=== PATIENT | male | born 2000 | race Caucasian/White ===

== ENCOUNTER 2019-03-07 18:15 | Inpatient (IN) | payer MEDICAID, OTHER ==
[~2019-03-07] VITALS: Ht 177.8 cm; Wt 154.7 kg
[2019-03-07 18:29] VITALS: BP 149/105
--- NOTE | 2019-03-07 18:40 | NUR ---
PT C/O N/V/D SINCE THIS MORNING. PT HAS WATERY DIARRHEA FOR 4 TIMES AND VOMITING 4 TIMES SINCE THIS MORNING. PT ALSO STATES HAVING DIFFUSED ABDOMINAL PAIN, SHARP, 7/10 AT THIS TIME. SKIN IS PINK/WARM/DRY; AAOX4 WITH EVEN AND STEADY GAIT; PT DENIES ANY FEVER, CP, SOB, OR COUGH AT THIS TIME; PATIENT STATES PAIN OF 7/10 AT THIS TIME; VSS; PATIENT POSITIONED FOR COMFORT; HOB ELEVATED; BEDRAILS UP X1; BED DOWN. ER MD MADE AWARE OF PT STATUS.
[2019-03-07] MEDS ORDERED: NACL 0.9% 1,000 ML IV ONE ×3 (19:50→22:00)
[2019-03-07] MEDS ORDERED: KETOROLAC 30 MG/ML VIAL IVP ONE ×2 (19:50→21:40)
[2019-03-07] MEDS ORDERED: ONDANSETRON 4 MG/2 ML VIAL IVP ONE (19:50)
[2019-03-07 20:25] LABS: HEMATOCRIT 47.5 % (36-52); HEMOGLOBIN 16.4 g/dL (12.0-18.0); MEAN CORPUSCULAR HEMOGLOBIN 30 pg (27-31); MEAN CORPUSCULAR HGB CONC 35 g/dL (33-37); PLATELET COUNT (AUTO) 287 K/uL (140-450); RED BLOOD CELL COUNT(AUTO) 5.52 MIL/uL (4.20-6.10); RED CELL DISTRIBUTION WIDTH 13.2 % (11.6-13.7); WHITE BLOOD COUNT (AUTO) 18.9 K/uL (4.5-11.0)
[2019-03-07 20:39] LABS: ANION GAP 14.9 (8-16); CREATININE 0.9 mg/dL (0.7-1.3); POTASSIUM 3.9 mmol/L (3.5-5.1)
[2019-03-07 20:46] LABS: ALBUMIN 4.2 g/dL (3.4-5.0); TOTAL BILIRUBIN 1.4 mg/dL (0.0-1.0)
[2019-03-07 20:48] LABS: LYMPHOCYTES % (MANUAL) 8 % (20-46); MONOCYTES % (MANUAL) 4 % (5-12)
[2019-03-07 20:54] LABS: APPEARANCE,URINE CLEAR (CLEAR); BILIRUBIN,URINE 1+ (NEGATIVE); BLOOD, URINE NEGATIVE (NEGATIVE); COLOR,URINE YELLOW (YELLOW); LEUKOCYTE ESTERASE ,URINE NEGATIVE (NEGATIVE); NITRITE, URINE NEGATIVE (NEGATIVE); UGLUCOSE NEGATIVE (NEGATIVE)
--- NOTE | 2019-03-07 21:30 | NUR ---
RECEIVED REPORT FROM AM NURSE. ASSUMED CARE OF PT AT THIS TIME. PT LAYING IN BED, FAMILY AT BEDSIDE. RR EVEN AND UNLABORED. ALL NEEDS MET.
[2019-03-07] MEDS ORDERED: LEVOFLOXACIN 750 MG/D5W PREMIX 150 ML IV ONE (21:40)
[2019-03-07] MEDS ORDERED: metroNIDAZOLE 500 MG/NS PREMIX 100 ML IV ONE (21:40)
[2019-03-07] MEDS ORDERED: ONDANSETRON 4 MG/2 ML VIAL IVP PRN (21:55)
[2019-03-07] MEDS ORDERED: ACETAMINOPHEN 325 MG TAB PO PRN (21:55)
[2019-03-07] MEDS ORDERED: HYDROcodone/APAP 7.5/325 MG 1 TAB PO PRN (21:55)
[2019-03-07] MEDS ORDERED: DEXT 5% / NACL 0.9% 500 ML IV SCH (22:05)
--- NOTE | 2019-03-07 22:22 | NUR ---
PT LAYING IN BED, FAMILY AT BEDSIDE. VSS. RR EVEN AND UNLABORED. REPORTS 2/10 PAIN AT THIS TIME. ALL NEEDS MET
--- NOTE | 2019-03-07 22:27 | NUR ---
Patient will be admitted to care of DR MANCILLA. Admited to [facility]. Will go to room 119A. Belongings list completed. Report to VANE MORENO.
[2019-03-07 22:35] VITALS: BP 127/76
--- NOTE | 2019-03-07 22:35 | NUR ---
REPORT RECEIVED FROM ED NURSE AT BEDSIDE. PT IN STABLE CONDITION. AAOX4. INTRODUCED SELF TO PT. BOARD UPDATED. NO COMPLAINTS OF PAIN. NO SOB. PT HAS A LOW GRADE FEVER AT 99.9. WILL MEDICATE. PT IS AMBULATORY. IV SITE R HAND 22G RUNNING D5NS@126ML/HR PATENT AND INTACT. SKIN WARM, DRY, AND INTACT WITH NO OPEN WOUNDS. BED LOCKED IN LOW POSITION. CALL ESCAMILLA WITHIN REACH. SAFETY PRECAUTION IN PLACE. ALL NEEDS MET AT THIS TIME.
[2019-03-07 22:45] LABS: PROTHROMBIN TIME 10.1 secs (10.8-13.4)
[2019-03-07 22:48] LABS: BARBITURATE, URINE NEG. ng/ml (NEG <=200); BENZODIAZEPINE, URINE NEG. ng/mL (NEG <=200); CANNABINOID, URINE NEG. ng/mL (NEG <=50); COCAINE, URINE NEG. ng/mL (NEG <=300); OPIATE, URINE NEG. ng/mL (NEG <=2000); PHENCYCLIDINE SCREEN,URINE NEG. ng/mL (NEG <=25)
[2019-03-07 22:52] LABS: FREE T4 (FREE THYROXINE) 1.14 ng/dL (0.76-1.46); MAGNESIUM 1.7 mg/dL (1.8-2.4); PHOSPHORUS 3.5 mg/dL (2.5-4.9); THYROID STIMULATING HORMONE 1.41 uIU/mL (0.34-3.74)
[2019-03-07] MEDS: DEXT 5% / NACL 0.9% 1,000 ML IV SCH (23:00)
--- NOTE | 2019-03-07 23:00 | NUR ---
OCCULT BLOOD AND STOOL SAMPLE RECEIVED. WILL SEND OUT TO LAB.
[2019-03-07] MEDS ORDERED: KETOROLAC 30 MG/ML VIAL IM PRN (23:15)
[2019-03-07] MEDS ORDERED: MAG SULF 2000 MG/WATER PREMIX 50 ML IV ONE (23:20)
--- NOTE | 2019-03-07 23:31 | NUR ---
TYL GIVEN FOR LOW GRADE FEVER OF 99.9 AND MILD PAIN AT IV SITE. PT TOLERATED WELL.
[2019-03-08] VITALS: BP 113/64
--- NOTE | 2019-03-08 00:18 | NUR ---
CY RENDON AND RUNNING. PT TOLERATING WELL.
--- NOTE | 2019-03-08 01:27 | NUR ---
ZOFRAN GIVEN FOR N/V. PT TOLERATED WELL.
--- NOTE | 2019-03-08 01:56 | NUR ---
MAGNESIUM HUNG AND RUNNING. PT TOLERATED WELL.
[2019-03-08] MEDS: metroNIDAZOLE 500 MG/NS PREMIX 100 ML IV SCH ×3 (04:08→21:26)
--- NOTE | 2019-03-08 04:08 | NUR ---
ART HUNG AND RUNNING. PT TOLERATING WELL.
--- NOTE | 2019-03-08 05:30 | NUR ---
PT AWAKE AND ALERT TRYING TO SLEEP. NO S/S OF DISTRESS NOTED. WILL CONTINUE TO MONITOR.
[2019-03-08 06:44] LABS: ANION GAP 14.2 (8-16); CARBON DIOXIDE 23.4 mmol/L (21-32); CREATININE 0.9 mg/dL (0.7-1.3); POTASSIUM 3.6 mmol/L (3.5-5.1)
[2019-03-08 06:56] LABS: MAGNESIUM 1.8 mg/dL (1.8-2.4); PHOSPHORUS 2.8 mg/dL (2.5-4.9)
--- NOTE | 2019-03-08 07:10 | NUR ---
REPORT GIVEN TO AM NURSE AT BEDSIDE. PT IN STABLE CONDITION.
--- NOTE | 2019-03-08 07:11 | NUR ---
RECEIVED ENDORSEMENT FROM WORD PROCESSOR TECHNICIAN NURSE. PATIENT IS AAOX4, BRUNEIAN SPEAKING. RESPIRATIONS ARE EVEN AND UNLABORED ON ROOM AIR. RIGHT HAND 22G IV INTACT, PATENT, AND INFUSING IVF. PATIENT DENIES ANY PAIN AT THIS TIME. PLAN OF CARE WAS REVIEWED WITH PATIENT. PATIENT VERBALIZED UNDERSTANDING. SAFETY MEASURES IN PLACE, CALL LIGHT WITHIN REACH.
[2019-03-08 08:00] VITALS: BP 119/61
[2019-03-08 08:08] LABS: BASOPHILS % (AUTO) 0.2 % (0.0-2.0); EOSINOPHILS % (AUTO) 0.2 % (0.0-4.0); HEMATOCRIT 41.9 % (36-52); HEMOGLOBIN 14.1 g/dL (12.0-18.0); LYMPHOCYTES # (AUTO) 0.8 K/uL (2.0-11.5); LYMPHOCYTES % (AUTO) 6.2 % (20.5-51.1); MEAN CORPUSCULAR HEMOGLOBIN 29 pg (27-31); MEAN CORPUSCULAR HGB CONC 34 g/dL (33-37); MEAN CORPUSCULAR VOLUME 86.7 fL (80-94); MONOCYTES # (AUTO) 0.8 K/uL (0.8-1.0); MONOCYTES % (AUTO) 6.8 % (1.7-9.3); NEUTROPHILS # (AUTO) 10.7 K/uL (1.8-7.7); NEUTROPHILS % (AUTO) 86.6 % (42.2-75.2); PLATELET COUNT (AUTO) 246 K/uL (140-450); RED BLOOD CELL COUNT(AUTO) 4.83 MIL/uL (4.20-6.10); RED CELL DISTRIBUTION WIDTH 13.4 % (11.6-13.7); WHITE BLOOD COUNT (AUTO) 12.4 K/uL (4.5-11.0)
[2019-03-08] MEDS: LACTOBACILLUS RHAMNOSUS GG 1 EACH CAP PO SCH (08:47)
[2019-03-08] MEDS: DOCUSATE SODIUM 100 MG GELCAP PO SCH ×2 (08:47→21:22)
--- NOTE | 2019-03-08 08:49 | NUR ---
ADMINISTERED SCHEDULED MEDICATIONS. PATIENT TOLERATED WELL. NO OTHER NEEDS AT THIS TIME, WILL CONTINUE TO MONITOR.
--- NOTE | 2019-03-08 09:20 | NUR ---
PATIENT HAS BEEN SCREENED AND CATEGORIZED HIGH NUTRITION RISK. PATIENT WILL BE SEEN WITHIN 1-2 DAYS OF ADMISSION. 03/08/19-03/09/[address]
--- NOTE | 2019-03-08 10:40 | NUR ---
PATIENT IS RESTING IN BED, FAMILY IS PRESENT AT BEDSIDE. PATIENT DENIES ANY PAIN. NO OTHER NEEDS AT THIS TIME, WILL CONTINUE TO MONITOR.
[2019-03-08] MEDS: DEXT 5% / NACL 0.9% 1,000 ML IV SCH (11:10)
--- NOTE | 2019-03-08 12:05 | NUR ---
PATIENT IS RESTING IN BED. DENIES ANY PAIN. FAMILY IS PRESENT AT BEDSIDE. NO OTHER NEEDS AT THIS TIME, WILL CONTINUE TO MONITOR.
--- NOTE | 2019-03-08 13:15 | NUR ---
ADMINISTERED SCHEDULED MEDICATIONS. PATIENT TOLERATED WELL. NO OTHER NEEDS AT THIS TIME, WILL CONTINUE TO MONITOR.
--- NOTE | 2019-03-08 14:55 | NUR ---
PATIENT RESTING IN BED, DENIES ANY PAIN AT THIS TIME. NO OTHER NEEDS AT THIS TIME, WILL CONTINUE TO MONITOR.
--- NOTE | 2019-03-08 15:29 | NUR ---
03/08/19 RD INITIAL ASSESSMENT COMPLETED PLEASE REFER TO NUTRITION ASSESSMENT UNDER CARE ACTIVITY FOR ESTIMATED NUTRITIONAL NEEDS. 1. CONTINUE FULL LIQUID DIET TOLERATED 2. ENCOURAGED PT TO EAT FULL LIQUID DIET 3. RD TO FOLLOW-UP 2-3 DAYS, HIGH RISK JEISON JACQUES, RD
[2019-03-08 16:00] VITALS: BP 115/74
--- NOTE | 2019-03-08 16:15 | NUR ---
PATIENT RESTING IN BED, FAMILY PRESENT AT BEDSIDE. PATIENT DENIES ANY PAIN. NO OTHER NEEDS AT THIS TIME, WILL CONTINUE TO MONITOR.
--- NOTE | 2019-03-08 17:25 | NUR ---
PATIENT RESTING IN BED, FAMILY IS PRESENT AT THE BEDSIDE. DENIES ANY PAIN. NO OTHER NEEDS AT THIS TIME, WILL CONTINUE TO MONITOR.
--- NOTE | 2019-03-08 19:18 | NUR ---
RECEIVED REPORT FROM CASI RN DAY SHIFT NURSE AT BEDSIDE FOR CONTINUITY OF CARE, PT IN STABLE CONDITION.
--- NOTE | 2019-03-08 19:21 | NUR ---
ENDORSED TO BRAND MARKETING SPECIALIST NURSE FOR CONTINUITY OF CARE. PATIENT IS STABLE AT THIS TIME.
--- NOTE | 2019-03-08 20:00 | NUR ---
PT IN BED AOX4. SKIN INTACT, HE HAS A R HAND 22G RUNNING D5N/S AT 126. PT HAS NO C/O OF PAIN VOICED AT THIS TIME AND VITAL SIGNS FOLLOWS T 97.9 P 88 R 18 B/P 117/84 02 98% ON ROOM AIR. ALL REQUESTED NEEDS ATTENDED AND CALL ESCAMILLA IN REACH.
--- NOTE | 2019-03-08 21:00 | NUR ---
PT IN BED GIVEN ORDERED MEDS AT THIS TIME, OF COLACE, FLAGYL AND LEVAQUIN. PT HAS NO C/O VOICED AT THIS TIME. D5N/S RUNNING ORDERED AND IV SITE FLUSHED PATENT.
--- NOTE | 2019-03-08 22:30 | NUR ---
PT C/O OF SOB. PT SAID THAT HE HAS PAIN IN ABDOMEN AND HE FEELS LIKE HE CANT TAKE A DEEP BREATH. PULSE OX WAS 96% ON ROOM AIR. PT GIVEN ORDERED TORADOL PRN FOR SEVERE PAIN. WILL MONITOR FOR PAIN RELIEF.
[2019-03-08] MEDS: LEVOFLOXACIN 500 MG/D5W PREMIX 100 ML IV SCH (23:29)
[2019-03-09] VITALS: BP 143/97
--- NOTE | 2019-03-09 00:15 | NUR ---
PT IN BED AND HE DENIES PAIN AT THIS TIME. PT ALSO DID REPORT 1 EPISODE OF BM. V/S FOLLOWS T 97.1 P 80 R 18 B/P 143/97 02 98% ON ROOM AIR. IV SITE INTACT AND D5N/S RUNNING ORDERED.
--- NOTE | 2019-03-09 02:40 | NUR ---
PT IN BED ASLEEP NO S/S OF PAIN OR DISTRESS NOTED. IV SITE INTACT AND RUNNING D5N/S ORDERED.
[2019-03-09 06:02] LABS: ANION GAP 11.6 (8-16); CARBON DIOXIDE 26.9 mmol/L (21-32); CREATININE 0.8 mg/dL (0.7-1.3); POTASSIUM 3.5 mmol/L (3.5-5.1)
[2019-03-09 06:09] LABS: ALBUMIN 3.1 g/dL (3.4-5.0); BILIRUBIN,DIRECT 0.2 mg/dL (0.0-0.3); TOTAL BILIRUBIN 1.4 mg/dL (0.0-1.0)
--- NOTE | 2019-03-09 07:30 | NUR ---
CARE ENDORSED TO AM SHIFT AT BEDSIDE FOR CONTINUITY OF CARE, PT IN STABLE CONDITION.
[2019-03-09 07:48] LABS: BASOPHILS % (AUTO) 0.5 % (0.0-2.0); EOSINOPHILS # (AUTO) 0.1 K/uL (0-0.4); EOSINOPHILS % (AUTO) 2.2 % (0.0-4.0); HEMATOCRIT 39.2 % (36-52); HEMOGLOBIN 13.6 g/dL (12.0-18.0); LYMPHOCYTES # (AUTO) 1.9 K/uL (2.0-11.5); LYMPHOCYTES % (AUTO) 28.5 % (20.5-51.1); MEAN CORPUSCULAR HEMOGLOBIN 30 pg (27-31); MEAN CORPUSCULAR HGB CONC 35 g/dL (33-37); MEAN CORPUSCULAR VOLUME 86.8 fL (80-94); MONOCYTES % (AUTO) 14.6 % (1.7-9.3); NEUTROPHILS # (AUTO) 3.6 K/uL (1.8-7.7); NEUTROPHILS % (AUTO) 54.2 % (42.2-75.2); PLATELET COUNT (AUTO) 236 K/uL (140-450); RED BLOOD CELL COUNT(AUTO) 4.51 MIL/uL (4.20-6.10); RED CELL DISTRIBUTION WIDTH 13.3 % (11.6-13.7); WHITE BLOOD COUNT (AUTO) 6.6 K/uL (4.5-11.0)
[2019-03-09 08:00] VITALS: BP 128/81
[2019-03-09] MEDS: DOCUSATE SODIUM 100 MG GELCAP PO SCH ×2 (08:34→20:44)
[2019-03-09] MEDS: LACTOBACILLUS RHAMNOSUS GG 1 EACH CAP PO SCH (08:34)
--- NOTE | 2019-03-09 08:35 | NUR ---
ADMINISTERED MEDICATIONS, REVIEWED INDICATIONS, PT FREE OF OBVIOUS SIGNS OF DISTRESS, BREATHING UNLABORED. NO OTHER REQUESTS AT THIS TIME.
[2019-03-09] MEDS: DEXT 5% / NACL 0.9% 1,000 ML IV SCH (08:37)
--- NOTE | 2019-03-09 10:13 | NUR ---
PT SITTING UP IN BED BREATHING UNLABORED WITH NO REQUESTS AND DENIES ANY PAIN. FEMALE VISITOR AT BEDSIDE I BROUGHT WATER FOR AND NO OTHER REQUESTS.
--- NOTE | 2019-03-09 10:56 | NUR ---
RECEIVED PHONE CALL FROM PATIENT'S MOTHER, ASKED PT IF I COULD DISCUSS HIS MEDICAL INFORMATION WITH HER WHICH HE SAID YES. INFORMED HER THAT HE IS STATING HE IS FEELING BETTER TODAY AND THAT I HAVE NO GIVEN HIM ANTIBIOTICS TODAY AND THAT HE HAD AN ULTRASOUND PROCEDURE THIS MORNING. SHE HAS NO OTHER QUESTIONS OTHER THEN TO TELL HIM TO CALL HER BECAUSE SHE HASN'T BEEN ABLE TO. INFORMED PT OF THIS AND HE INFORMED ME HE WOULD CALL HER.
--- NOTE | 2019-03-09 11:37 | NUR ---
SPOKE TO PATIENT AT BEDSIDE WITH JENNY DIRECTOR AND NANCY PHARMACIST AND FEMALE PT VISITOR ALSO AT BEDSIDE. WAS ASKED WHAT I KNEW OF TODAY'S PLAN OF CARE INFORMED THEM OF PENDING GI CONSULT ACCORDING TO RECENT PROGRESS NOTES FOLLOWING ABDOMINAL ULTRASOUND WHICH TOOK PLACE THIS MORNING.
--- NOTE | 2019-03-09 13:10 | NUR ---
PT RESTING IN BED WITH VISITOR AT BEDSIDE, PATIENT AND VISITOR HAVE NO REQUESTS AT THIS TIME AND PT HAS NO OBVIOUS SIGNS OF DISTRESS.
--- NOTE | 2019-03-09 13:50 | NUR ---
PT REQUESTING HIS LINENS BE CHANGED. INFORMED ELLA WHO INFORMED ME SHE WILL CHANGE THEM. PT HAS NO OTHER REQUESTS AND IS FREE OF OBVIOUS SIGNS OF DISTRESS AT THIS TIME.
[2019-03-09 16:00] VITALS: BP 124/84
--- NOTE | 2019-03-09 16:40 | NUR ---
PT IS SLEEPING IN BED FEMALE VISITOR AT BEDSIDE. BREATHING UNLABORED AND SYMMETRICAL.
--- NOTE | 2019-03-09 16:56 | NUR ---
SPOKE WITH DR JOYNER WHO INFORMED ME THAT ON HIS END PATIENT IS CLEAR TO DISCHARGE. SPOKE WITH DR GRAVES AND INFORMED HER THAT THE PATIENT WAS HOPING SOME TIME TODAY TO SPEAK WITH A DOCTOR REGARDING HIS PLAN, BUT INFORMED HER THAT THE PATIENT IS SLEEPING AT THIS TIME AND WAS HOPING TO TALK AROUND DINNER. CALLED [facility] AND MADE SURE THEY WERE AWARE THAT PATIENT IS ON REGULAR DIET NOW AND A DINNER TRAY WILL BE COMING TO HIM. THEY INFORMED ME THAT THEY GOT THE UPDATE ALREADY AND HAVE HIS TRAY COMING SOON.
--- NOTE | 2019-03-09 18:09 | NUR ---
PT RESTING IN BED NO COMPLAINTS OR DISTRESS.
--- NOTE | 2019-03-09 19:09 | NUR ---
GAVE BEDSIDE REPORT TO NIGHT NURSE PT STABLE WITH FEMALE VISITOR AT BEDSIDE.
--- NOTE | 2019-03-09 19:10 | NUR ---
RECEIVED REPORT FROM KVNG RN DAYSHIFT NURSE AT BEDSIDE FOR CONTINUITY OF CARE, PT IN STABLE CONDITION.
--- NOTE | 2019-03-09 20:00 | NUR ---
PT SITTING UP IN LOW BED WITH SIDE RAILS UP X2. HE HAS NO C/O OF PAIN OR DISTRESS NOTED. IV SITE ON RIGHT HAND INTACT AND FLUSHED PATENT. D5NS AT 126 RUNNING. V/S FOLLOWS T 98.0 P 78 R 18 B/P 124/75 02 98% ON ROOM AIR. FAMILY WANTS TO KNOW PLAN OF ACTION FOR PT. WILL SPEAK WITH RESIDENT MD REGARDING PLAN OF CARE.
[2019-03-09] MEDS: LEVOFLOXACIN 500 MG/D5W PREMIX 100 ML IV SCH (20:46)
--- NOTE | 2019-03-09 21:15 | NUR ---
SPOKE WITH RESIDENT MD DR. STEPHENS AND MD CONTEH REGARDING PLAN OF ACTION. RESIDENT MD SAID THEY WOULD SPEAK TO FAMILY. PT GIVEN ORDERED COLACE AND LEVAQUIN. FAMILY REMAINS AT BEDSIDE.
--- NOTE | 2019-03-09 22:22 | NUR ---
MD CONTEH AT BEDSIDE TO EXPLAIN PLAN OF CARE FOR PT TO PT AND FAMILY.
--- NOTE | 2019-03-09 23:00 | NUR ---
SPOKE WITH PT AND FAMILY WHO SAID THAT THEY WANTED TO LEAVE BECAUSE HE IS HAVING A HARD TIME SLEEPING HERE AND A HARD TIME SLEEPING HERE AND THAT THEY WILL BE MOST LIKELY DISCHARGING HIM IN AM, SO PT DECIDED THAT HE WANTS TO LEAVE [facility]. WILL MAKE MD AWARE OF THEIR WISHES.
--- NOTE | 2019-03-09 23:35 | NUR ---
RESIDENT MADE AWARE OF PT CHOICE TO LEAVE, RESIDENT MD WINSTON DISCUSSED THE RISKS AND BENEFITS OF STAYING VS GOING HOME. PT AND FAMILY DECIDED THEY WANT TO GO HOME AT THIS TIME. PT SIGNED AMA FORM, IV TAKEN OUT AND PT LEFT WITH BELONGINGS IN HAND.
[2019-03-09] MEDS ORDERED: LACT10CA1 PO (23:51)
[2019-03-09] MEDS ORDERED: LEVO750T2 PO (23:51)
[2019-03-09] MEDS ORDERED: METR250T2 PO (23:51)
[2019-03-10 06:10] LABS: HEPATITIS A ANTIBODY IGM Negative (Negative); HEPATITIS B CORE AB TOTAL Negative (Negative); HEPATITIS B SURFACE ANTIBODY Reactive (.); HEPATITIS B SURFACE ANTIGEN Negative (Negative)
== END 2019-03-09 23:35 | disposition left against medical advice (07) | DRG 720 ==
LOC: MED 18:15 → MTU 21:55
PROVIDERS: ADMIT General Practice; ATTEND General Practice
DX: A41.9 Sepsis, unspecified organism (principal); E66.01 Morbid (severe) obesity due to excess calories; K76.0 Fatty (change of) liver, not elsewhere classified; I10 Essential (primary) hypertension; K92.1 Melena; A09 Infectious gastroenteritis and colitis, unspecified; Z71.3 Dietary counseling and surveillance; Z53.21 Procedure and treatment not carried out due to patient leaving prior to being seen by health care provider; Z88.0 Allergy status to penicillin; Z90.49 Acquired absence of other specified parts of digestive tract
CPT/HCPCS: 36415; 76705; 80048; 80053; 80076; 80305; 81003; 82150; 82272; 83036; 83605; 83690; 83735; 83880; 84100; 84439; 84443; 84484; 85025; 85610; 85730; 86704; 86706; 86708; 86709; 86803; 87040; 87045; 87081; 87177; 87340; 89055; 96361; 96374; 96375; 99285; J1885; J1956; J2405; J3475; J3490; J7030; J7042; Q0092